=== PATIENT | female | born 1965 | race Asian ===

== ENCOUNTER 2018-04-10 20:18 | Emergency (ER) | payer MEDICAID ==
[2018-04-10] MEDS ORDERED: IBUPROFEN 600 MG TAB PO ONE (20:37)
[2018-04-10] MEDS ORDERED: LIDOCAINE 2% VISCOUS 15 ML UDCUP ONE (20:48)
[2018-04-10] MEDS ORDERED: LIDOCAINE 2% VISCOUS 15 ML UDCUP PO ONE (20:49)
--- NOTE | 2018-04-10 20:53 | EDPHY ---
H & P Stated Complaint: R tonsil exudate, R ear pain, R jaw pain x 3 weeks Time Seen by Provider: 04/10/18 20:26 HPI/ROS: 52 yo F presents c/o sore throat for several weeks, has frequent cold sores on her lips. Today complains of pain at her right tonsil travelling to her right ear and her teeth on the right. She is able to tolerate her own secretions but does find it quite painful to swallow. No fever or chills. Review of systems As per HPI General no fever no chills no weakness HEENT no eye pain no eye discharge. No eye redness, positive sore throat Respiratory no cough, no shortness of breath Cardiac no chest pain, no peripheral edema GI no abdominal pain, no diarrhea, no constipation, no nausea, no vomiting no flank pain, no hematuria, no dysuria Musculoskeletal no myalgias, no joint pain Heme no easy bruising, no easy bleeding Endo no polyuria, no polydipsia Skin no rashes, no pruritus Neuro no syncope, no dizziness, no headaches Psych is no suicidal ideation, no homicidal ideation Source: Patient, Family Exam Limitations: No limitations - Personal History LMP (Females 10-55): Post Menopausal Current Tetanus Diphtheria and Acellular Pertussis (TDAP): Yes Tetanus Vaccine Date: within 10 years - Medical/Surgical History Hx Asthma: No Hx Chronic Respiratory Disease: No Hx Diabetes: No Hx Cardiac Disease: No Hx Renal Disease: No Hx Cirrhosis: No Hx Alcoholism: No Hx HIV/AIDS: No Hx Splenectomy or Spleen Trauma: No Other PMH: , cold sores - Family History Significant Family History: No pertinent family hx - Social History Smoking Status: Never smoked Alcohol Use: None Drug Use: None - Physical Exam Exam: 52-year-old female Alert and oriented in no acute distress nontoxic appearance, afebrile Atraumatic normocephalic Extraocular muscles intact, anicteric tms clear bilaterally no parotid tenderness, no mastoid tenderness Neck-supple, positive anterior cervical lymphadenopathy mildly tender to palpation on the right Oropharynx , erythematous, no uvular deviation, no purulent exudate, tolerating own secretions, no trismus ulceration round 1 cm on the right tonsil Lungs clear to auscultation bilaterally Heart regular rate and rhythm Abdomen normoactive bowel sounds soft nontender Extremities no cyanosis clubbing edema Skin no rash Constitutional: Initial Vital Signs Temperature (C) 36.5 C 04/10/18 20:27 Heart Rate 66 04/10/18 20:27 Respiratory Rate 16 04/10/18 20:27 Blood Pressure 151/101 H 04/10/18 20:27 O2 Sat (%) 95 04/10/18 20:27 O2 Delivery Mode Room Air Allergies/Adverse Reactions: No Known Allergies Allergy (Verified 04/10/18 20:31) Home Medications: Medication Instructions Recorded Acyclovir 04/10/18 [place] Medication 04/10/18 Lidocaine 2% Viscous 5 ml MM QID PRN 5 Days #100 ml 04/10/18 Penicillin V Potassium [Penicillin 500 mg PO TID 10 Days #30 tab 04/10/18 VK] Medical Decision Making ED Course/Re-evaluation: pt seen and evaluated for sore throat physical exam reveals an ulceration on the right tonsil, while likely viral will also cover for bacteria. Imp tonsil ulceration Plan Continue Acyclovir 5x a day, pt takes this on occasion for cold sores. Pencillin VK 500 TId x 10 days Viscous lidocaine to swish and swallow or spit for severe pain F/u with primary care, discussed with both and the patient that if this is not improving she may need to see a specialist for a biopsy of the lesion. Differential Diagnosis: Differential diagnosis considered but not limited to: pharyngitis, strep pharyngitis, parotiditis, dental infection, ear infection - Data Points Medications Given: Discontinued Medications Ibuprofen (Motrin) 600 mg PO EDNOW ONE Stop: 04/10/18 20:38 Last Admin: 04/10/18 20:51 Dose: 600 mg Lidocaine (Lidocaine 2% Viscous) 15 ml PO EDNOW ONE Stop: 04/10/18 20:50 Last Admin: 04/10/18 20:51 Dose: 15 ml Penicillin V Potassium (Pen Vk 250 Mg Prepack#6) 1 btl TAKEHOME EDNOW ONE PRN Reason: Protocol Stop: 04/10/18 20:59 Last Admin: 04/10/18 21:03 Dose: 1 btl Departure - Departure Disposition: Home, Routine, Self-Care Clinical Impression: Ulcer, tonsil, Acute pharyngitis Condition: Good Instructions: Penicillin V (By mouth), Pharyngitis (ED) Referrals: [facility] [Other] - As per Instructions Prescriptions: Lidocaine 2% Viscous 5 ml MM QID PRN 5 Days #100 ml PRN Reason: Pain, Mild Penicillin V Potassium [Penicillin VK] 500 mg PO TID 10 Days #30 tab
[2018-04-10] MEDS ORDERED: PENICILLIN VK 250MG PREPACK#6 BTL TAKEHOME ONE (20:58)
[2018-04-10 21:10] VITALS: BP 153/110
== END 2018-04-10 21:09 | disposition home or self-care (01) ==
LOC: CED 20:18
DX: J02.9 Acute pharyngitis, unspecified (principal)